=== PATIENT | male | born 1950 | race Caucasian/White ===

== ENCOUNTER 2017-10-12 16:52 | Inpatient (IN) | payer OTHER, BC ==
[~2017-10-12] VITALS: Ht 175.3 cm; Wt 107.5 kg
--- NOTE | ~2017-10-12 | EKG ---
[place] [address] [address] [facility] [place] [address] ELECTROCARDIOGRAM REPORT Name: DANIELLA AGUAYO Room #: 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 : 1950 Requested By: Toro Velasquez Order Number: [id number] MD: Ravinder Johnson Measurements Intervals [place] Rate: 90 P: 34 ND: 166 QRS: -61 QRSD: 92 T: 55 QT: 343 QTc: 420 Interpretive Statements Sinus rhythm Inferior infarct, age indeterminate No previous ECG available for comparison Electronically Signed On 10-12-2017 17:11:49 VENDING MACHINE MECHANIC by Ravinder Johnson [email or web address] <ELECTRONICALLY SIGNED> By: Ravinder Johnson MD, [facility] 10/12/17 1711 1652 1652 Ravinder Johnson MD, FACC /EPI
--- NOTE | ~2017-10-12 | D ---
[facility] [place] [address] DISCHARGE SUMMARY Name: DANIELLA AGUAYO Room #: 217-P [facility] IN M.R.#: [id number] Admission: 10/12/17 Attend Phys: Bob Lorenzo MD Discharge: 10/14/17 Date of : 50 Report #: [id number] THIS REPORT FOR: //name// CC: NOVA Lroenzo DATE OF SERVICE: 10/14/2017 HISTORY OF PRESENT ILLNESS: This is a 67-year-old male with a 48-hour history of substernal chest pain, which had occurred both with exercise and at rest. The patient felt it might be "indigestion" because on each occasion he described that belching would relieve the pain. The first event lasted 30 minutes and he considered going to the Emergency Room at that time, but after belching his pain totally resolved and so he remained at home. The patient did note that exercise precipitated his discomfort consistently, highly suggestive of myocardial ischemia. Electrocardiogram in the office revealed tiny Q-waves in the inferior leads and perhaps [address] segment elevation. The patient was seen urgently by Dr. Migel Mahoney, who referred him to the Emergency Room at [facility]. Evaluation there disclosed troponin 1.34, suggestive of acute myocardial injury, and he was hospitalized on the coronary care unit. HOSPITAL COURSE: Following admission, the patient was started on intravenous heparin and on the morning of 10/13/2017 he underwent cardiac catheterization by Dr. Migel Mahoney, which revealed high-grade stenoses in both the left anterior descending and the right coronary system as well as ostial lesions. Specifically, there was left main disease in the proximal segment. In the left anterior descending there was a severe discrete stenosis in the proximal segment estimated 80% and in the mid segment there was a 70% stenosis. At the diagonal there was a discrete 80% stenosis of the proximal segment. The obtuse marginal #1 showed mild disease, the obtuse marginal #2 small to moderate size caliber vessel with ostial stenosis of 70%. Right coronary artery was dominant with severe diffuse stenosis of 70-80% in the mid and distal segments. The right posterior descending artery was patent with no flow limiting lesions. Left ventriculogram showed ejection fraction estimated at 30-40% with wall motions present including hypokinesis of the inferior and distal anteroapical segments. Echocardiogram estimated ejection fraction 50% with no significant valvular abnormalities identified. Laboratory testing, methicillin-resistant Staphylococcus aureus negative, hs-CRP 8.49 (with an active respiratory infection). Lipid profile: Total cholesterol 165, triglycerides 270, LDL 66. Peak troponin 4.12. The patient did not have recurrent chest pain during hospitalization and he remained hemodynamically stable with excellent blood pressure control. He was [address] [address] DISCHARGE SUMMARY Name: DANIELLA AGUAYO Room #: 217-P [facility] IN M.R.#: [id number] Admission: 10/12/17 Attend Phys: Bob Lorenzo MD Discharge: 10/14/17 Date of : 50 Report #: [id number] started on beta christine by Dr. Mahoney, which he maintained through his hospitalization. In addition, his statin therapy was increased with utilization of atorvastatin 50 mg daily. On the day of transfer, the patient raised a question about receiving surgical bypass in another facility. The patient contacted Dr. Armando Bone at the [facility] and transfer was accomplished. In all ways the patient remained medically stable throughout this hospitalization. FINAL DIAGNOSES: 1. Non-ST elevation myocardial infarction. 2. Three-vessel coronary atherosclerosis, severe. 3. Ischemic cardiomyopathy, mild (ejection fraction 35-50%). 4. Acute viral bronchitis. 5. Type 2 diabetes mellitus, poorly controlled. DISCHARGE MEDICATIONS: Metformin ER 1000 mg b.i.d. a.c., aspirin 81 mg daily, metoprolol succinate 50 mg daily, atorvastatin 40 mg daily, pantoprazole 40 mg daily, guaifenesin 600 mg 2 tablets b.i.d., tamsulosin 0.4 mg at bedtime, lisinopril 20 mg daily, nitroglycerin 0.4 mg sublingually p.r.n. chest pain, and Humalog insulin low dose sliding scale. DISPOSITION: The patient is discharged from [facility] with readmission planned at the [facility] under the care of Dr. Nova Bone with plans for urgent coronary artery revascularization. PROCEDURE: Left heart catheterization with selective coronary angiography and left ventriculogram. COMPLICATIONS: None. DIRECTOR AND PROFESSOR: Migel Mahoney M.D. (Cardiology). <ELECTRONICALLY SIGNED> By: Bob Lorenzo MD 10/15/17 0823 1335 1515 Bob Lorenzo MD /nt
--- NOTE | ~2017-10-12 | 2DMMODE ---
[facility] [address] [place] [address] 2 D/M-MODE ECHOCARDIOGRAM Name: DANIELLA AGUAYO Room #: 217-P [facility] IN ..#: [id number] Admission: 10/12/17 Attend Phys: Bob Lorenzo MD Discharge: Date of : 50 Date of Service: 10/13/17 1619 Report #: [id number] THIS REPORT FOR: //name// APPROVED REPORT Study performed: 10/13/2017 15:05:55 EXAM: Comprehensive 2D, Doppler, and color-flow Echocardiogram Patient Location: Bedside Room #: [facility] Status: routine BSA: 2.23 HR: 80 bpm BP: 122/76 mmHg Rhythm: NSR Other Information Study Quality: Fair Technically limited study due to body habitus. Indications Pre-Op CABG Echo Enhancing Agent Agent(s) / Amount(s) Used: Optison 4 cc 2D Dimensions RVDd: 39.53 mm LVEF(%): 51.14 (>50%) IVSd: 11.28 (7-11mm) LVOT Diam: 22.63 (18-24mm) LVDd: 59.05 mm PWd: 10.90 (7-11mm) Ascending Ao: 41.16 (22-36mm) LVDs: 43.38 (25-40mm) Aortic Root: 39.23 mm Archer's LVEF: 51.14 % Volumes Left Atrial Volume (Systole) Single Plane 4CH: 46.77 mL Single Plane 2CH: 51.05 mL LA ESV Index: 24.00 mL/m2 Aortic Valve AoV Peak Camilo.: 1.48 m/s AO Peak Gr.: 8.77 mmHg LVOT Max P.95 mmHg LVOT Max V: 0.99 m/s MARIA D Vmax: 2.[address] [facility] [place] [address] 2 D/M-MODE ECHOCARDIOGRAM Name: DEDEDANIELLA Samson Room #: 217-P [facility] IN M.R.#: [id number] Admission: 10/12/17 Attend Phys: Bob Lorenzo MD Discharge: Date of : 50 Date of Service: 10/13/17 1619 Report #: [id number] Mitral Valve E/A Ratio: 0.9 MV Decel. Time: 215.26 ms MV E Max Camilo.: 0.76 m/s MV A Camilo.: 0.87 m/s MV PHT: 62.43 ms IVRT: 87.66 ms Pulmonary Valve PV Peak Camilo.: 1.54 m/s PV Peak Gr.: 9.47 mmHg Tricuspid Valve TR Peak Camilo.: 2.71 m/s TR Peak Gr.: 29.29 mmHg Left Ventricle Left ventricle is at the upper limits of normal. Regional wall motion abnormalities cannot be excluded. There is normal left ventricular wall thickness. Left ventricular systolic function is low normal. LVEF is 50%. Mild diastolic dysfunction is present (impaired relaxation pattern). Right Ventricle The right ventricle is normal size. The right ventricular systolic function is normal. Atria The left atrium size is normal. The right atrium size is normal. Aortic Valve The aortic valve is normal in structure. No aortic regurgitation is present. There is no aortic valvular stenosis. Mitral Valve The mitral valve is normal in structure. Mild mitral regurgitation. No evidence of mitral valve stenosis. Tricuspid Valve The tricuspid valve is normal in structure. Trace tricuspid regurgitation. Estimated PAP is 29mmHg plus the right atrial pressure. Pulmonic Valve Pulmonic valve is not well visualized. [facility] [address] [place] [address] 2 D/M-MODE ECHOCARDIOGRAM Name: DANIELLA AGUAYO Room #: 217-P [facility] IN ..#: [id number] Admission: 10/12/17 Attend Phys: Bob Lorenzo MD Discharge: Date of : 50 Date of Service: 10/13/17 1619 Report #: [id number] Great Vessels Aortic root is mildly dilated at 3.9cm. The ascending aorta is mildly dilated 4.1cm. The inferior vena cava is not well visualized. Pericardium There is no pericardial effusion. <Conclusion> Technically difficult study Left ventricular systolic function is low normal. LVEF is 50%. Mild diastolic dysfunction The aortic valve is normal in structure. No aortic regurgitation or stenosis The mitral valve is normal in structure. Mild mitral regurgitation. The ascending aorta is mildly dilated 4.1cm. There is no pericardial effusion. <ELECTRONICALLY SIGNED> By: Ravinder Johnson MD, [facility] 10/13/17 1619 1619 1619 Ravinder Johnson MD, FAC /INF
--- NOTE | ~2017-10-12 | CATHLAB ---
[facility] [address] [place] [address] INVASIVE PROCEDURE REPORT Name: DANIELLA AGUAYO Room #: 217-P [facility] IN M.R.#: [id number] Admission: 10/12/17 Attend Phys: Bob Lorenzo MD Discharge: Date of : 50 Date of Service: 10/13/17 1242 Report #: [id number] THIS REPORT FOR: //name// APPROVED REPORT Patient Details Patient Status: In-Patient Room #: The patient is a 67 year-old male Event Personnel Migel Mahoney Webmethods Consultant, Aidee Jacobs, Gaudencio Victoria Penny, Wes RN Procedures Performed Art Access - R femoral artery* [id number] Initial Mod Sed Same Phys/QHP Gr5y [id number] Left Heart Cath w/or w/o Coronaries [id number] [facility] Hemostasis with Manual pressure Indication Non-STEMI , Dyspnea, Chest pain Risk Factors Hypercholesterolemia, Hypertension, Diabetes Procedure Narrative The patient was brought urgently to the Cardiac Catheterization Laboratory and was prepped and draped in a sterile manner. The Right Groin^ was infiltrated with 1% Lidocaine subcutaneous anesthesia. A PINNACLE 4FR Sheath #[id number] sheath was inserted into the RFA^. Coronary angiography was performed using coronary diagnostic catheters. The right coronary system was accessed and visualized with a JR 4 catheter. The left coronary system was accessed and visualized with a JL 4 catheter. The left ventricle was accessed and visualized with a Pigtail catheter. Left ventricular/Aortic Valve gradient assessed via catheter pullback. Left ventriculogram was performed in MORRIS projection. The patient tolerated the procedure well and there were no complications associated with the procedure. There was no hematoma. Intraoperative Conscious Sedation Sedation start time: 11:37 Case end Time: 11:58 Fentanyl 25.0 mcg Versed 1.5 mg Fluoro Time: 2.57 minutes [facility] [place] [address] INVASIVE PROCEDURE REPORT Name: DEDEDANIELLA Room #: 217-P [facility] IN M.R.#: [id number] Admission: 10/12/17 Attend Phys: Bob Lorenzo MD Discharge: Date of : 50 Date of Service: 10/13/17 1242 Report #: [id number] Dose: DAP 12400.00 cGycm2 756 mGy Contrast Type and Amount: Omnipaque 105 ml Coronary Angiography The patient's coronary anatomy is right dominant. Diagnostic Cath Left Main Mild disease in the proximal segment. LAD There is a severe discrete stenosis in the proximal segment, 80%. There is a severe discrete stenosis in the mid segment, 70%. Diagonal 1 There is a severe discrete stenosis in the proximal segment, 80%. OM1 Mild disease in the proximal segment. OM2 Small to moderate size caliber vessel with a severe ostial stenosis, 70%. Right Coronary Dominant vessel with severe diffuse stenosis of 70-80% in the mid and distal segments of the RCA. R PDA Patent vessel, with no flow-limiting lesions. RPLV Moderate size caliber vessel, supplies several branches as it travels down the inferolateral wall to the apex. No flow-limiting lesions. Left Ventriculography The left ventricle is mildly dilated in size with decreased contractility. The left ventricular ejection fraction is estimated to be 35-40%. Left ventricular wall motion abnormalities are present. There is hypokinesis of the inferior and distal anteroapical segment. Hemodynamics The aortic pressure is 111/64 mmHg with a mean of 86 mmHg. The left ventricular pressure is 120/-1 mmHg with a mean of mmHg. The left ventricular end diastolic pressure is 8 mmHg. Conclusion 1. Severe multivessel disease. 2. At least moderate ischemic cardiomyopathy. 3. Recommend CV consultation for CABG. 4. Aggressive risk factor management. <ELECTRONICALLY SIGNED> By: Migel Mahoney MD 10/13/17 1242 1242 1242 Migel Mahoney MD /INF
--- NOTE | ~2017-10-12 | H ---
[facility] [place] [address] HISTORY AND PHYSICAL Name: DANIELLA AGUAYO Room #: 217-P [facility] IN M.R.#: [id number] Admission: 10/12/17 Attend Phys: Bob Lorenzo MD Discharge: Date of : 50 Report #: [id number] THIS REPORT FOR: //name// CC: Bob Lorenzo DATE OF SERVICE: 10/12/2017 This is a 67-year-old with known coronary artery disease, who was seen in the office prior to hospitalization and referred to Dr. Migel Mahoney. CHIEF COMPLAINT: Chest pains. HISTORY OF PRESENT ILLNESS: This patient has known asymptomatic coronary artery disease by coronary calcium scanning. On 10/10, the patient began to have recurring bouts of epigastric and substernal chest pain. The first event lasted at least 30 minutes and he considered going to the Emergency Room at that time, but he belched a couple of times and felt that his pain totally resolved. Since that time, the patient has had pains at rest, but also had pain with attempted exercise. The patient states he is usually able to exercise to a level of 1000 calories, but in the past 48 hours, could only accomplish about 200 calories of exercise, at which time his pain would recur. Electrocardiogram revealed very small Q-waves in inferior leads. The patient was seen by Dr. Migel Mahoney, who felt this represented myocardial ischemia and he referred him to the Emergency Room, where he was found to have an elevated troponin, consistent with a non-ST elevation SC. The patient was hospitalized and started on heparin infusion with plan to undergo cardiac catheterization on 10/13/2017. PAST MEDICAL HISTORY: The patient has type 2 diabetes mellitus with neuropathy and he has known coronary artery disease. He has been hypertensive, obese. He has known left carotid atherosclerosis, obstructive sleep apnea, long-standing gastroesophageal reflux disease with documented peptic ulcers and Haile esophagus. He also has a duodenal diverticulum with a history of recurrent duodenal diverticulitis. Known hyperuricemia, elevated ferritin, hypogonadism, diverticulosis, lactose intolerance. ALLERGIES: None known (INTOLERANT OF PRAVASTATIN). 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 IMMUNIZATIONS: Tdap 01/2009, pneumococcal vaccine 05/2014. 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 Nonsmoker, [id number] alcohol consumption with dietary [address] [address] HISTORY AND PHYSICAL Name: DANIELLA AGUAYO Room #: 217-P [facility] IN M.R.#: [id number] Admission: 10/12/17 Attend Phys: Bob Lorenzo MD Discharge: Date of : 50 Report #: [id number] indiscretion, does regularly exercise. He is , has children. PAST SURGICAL HISTORY: In 1991 left elbow open reduction internal fixation, 2012 laparoscopic cholecystectomy, in 2016 bilateral lens replacements. REVIEW OF SYSTEMS: GASTROINTESTINAL: The patient is convinced that on each occasion that he has had chest pain that belching has resolved his symptomatology. PHYSICAL EXAMINATION: GENERAL: This is an obese male who appears in no distress. He is coughing due to a lower respiratory infection. ENT: Tympanic membranes are clear. Posterior oropharynx shows only mild injection with no lateral bands or exudates. LUNGS: Clear. Cough is noted. CHEST: Nontender to palpation. CARDIOVASCULAR: S1, S2 are normal. No murmurs are noted. Peripheral pulses are intact. ABDOMEN: Obese, soft and nontender with scars related to previous laparoscopic cholecystectomy. LIVER: Nonpalpable. IMPRESSION: 1. Non-ST elevated myocardial infarction. 2. Coronary atherosclerosis, multivessel. 3. Type 2 diabetes mellitus in the obese, complicated by peripheral neuropathy. 4. Benign essential hypertension, controlled. 5. Chronic gastroesophageal reflux with Haile esophagus. 6. Obstructive sleep apnea. 7. Obesity. 8. Left carotid atherosclerosis. PLAN: The patient is n.p.o., but we will administer cough medication and guaifenesin because of his lower respiratory infection. The patient has been seen by Dr. Mahoney and is scheduled this morning for cardiac catheterization. I have discussed with the patient the possibility that the culprit vessel could be stented or he may be the recommended coronary artery bypass grafting based on his previous evidence for multivessel disease. <ELECTRONICALLY SIGNED> By: Bob Lorenzo MD 10/14/17 0736 0540 0613 Bob Lorenzo MD /nt
[2017-10-12 16:52] VITALS: BP 129/81
[2017-10-12 17:15] LABS: ABSOLUTE NEUTROPHILS 5.2 thou/uL (1.4-8.2); BASOPHILS 1.1 % (0.0-2.0); EOSINOPHILS 3.6 % (0.0-3.0); HEMATOCRIT 43.1 % (42.0-52.0); LYMPHOCYTES 26.7 % (24.0-44.0); MCH 29.3 pg (26.0-34.0); MCHC 34.8 g/dL (28.0-37.0); MCV 84.2 fL (80.0-100.0); MONOCYTES 7.1 % (1.0-8.0); PLATELET COUNT 217 thou/uL (150-400); POLYS 61.5 % (36.0-66.0); RBC 5.12 mil/uL (4.50-6.00); RDW 13.3 % (10.5-14.5); WBC 8.5 thou/uL (4.0-11.0)
[2017-10-12 17:23] LABS: CALCIUM 9.6 mg/dL (8.5-10.1); CREATININE 0.9 mg/dL (0.7-1.3); POTASSIUM 4.1 mmol/L (3.5-5.1)
[2017-10-12 17:31] LABS: ALBUMIN 3.7 g/dL (3.4-5.0); DIRECT BILIRUBIN 0.1 mg/dL (<0.1-0.3); TOTAL BILIRUBIN 0.4 mg/dL (<0.1-1.0); TOTAL PROTEIN 7.4 g/dL (6.4-8.2)
[2017-10-12 17:35] LABS: TROPONIN-I 1.34 ng/mL (<0.06)
[2017-10-12 18:05] LABS: APTT 26.1 Seconds (24.5-32.8); PROTIME 9.6 Seconds (9.3-11.4)
[2017-10-12] MEDS ORDERED: ASPIR 8181 MG PO (18:20)
[2017-10-12] MEDS ORDERED: FISH OIL 1,001000 M2 PO (18:21)
[2017-10-12] MEDS ORDERED: NEPHROCAPS SOFT1 CAP PO (18:21)
[2017-10-12] MEDS ORDERED: VITAMIN B COMP1 EACH PO (18:21)
[2017-10-12] MEDS ORDERED: KETOCONAZOLE 2200 MG PO (18:22)
[2017-10-12] MEDS ORDERED: PRINIVIL20 MG PO (18:22)
[2017-10-12] MEDS ORDERED: MAG-G27 MG PO (18:23)
[2017-10-12] MEDS ORDERED: METFORMIN HCL500 MG PO (18:23)
[2017-10-12] MEDS ORDERED: MULTIPLE VITAM1 EAC2 PO (18:24)
[2017-10-12] MEDS ORDERED: OMEPRAZOLE20 MG PO (18:24)
[2017-10-12] MEDS ORDERED: CRESTOR10 MG PO (18:24)
[2017-10-12] MEDS ORDERED: VITAMIN D-32000 UNIT PO (18:25)
[2017-10-12] MEDS ORDERED: FLOMAX0.4 MG PO (18:25)
[2017-10-12 21:11] VITALS: BP 127/77
[2017-10-12 21:34] VITALS: BP 113/71
[2017-10-12 22:02] VITALS: BP 130/84
[2017-10-13 05:26] LABS: CHOLESTEROL 165 mg/dL (<200); HDL CHOLESTEROL 45 mg/dL (>40); LDL CHOLESTEROL 66 mg/dL (<100); SERUM ASSESSMENT Clear; TC:HDL 3.7 Ratio (Not establshd); TRIGLYCERIDE 270 mg/dL (<150); VLDL 54 mg/dL (<40)
[2017-10-13 05:45] VITALS: BP 128/72
[2017-10-13 07:40] VITALS: BP 122/82
[2017-10-13 12:35] VITALS: BP 122/76
[2017-10-13 16:40] VITALS: BP 121/69
[2017-10-13 20:36] VITALS: BP 113/69
[2017-10-13 23:30] VITALS: BP 124/79
[2017-10-14 04:11] VITALS: BP 110/63
[2017-10-14 04:49] LABS: HEMATOCRIT 40.4 % (42.0-52.0); HEMOGLOBIN 13.7 gm/dL (14.0-18.0); MCH 29.1 pg (26.0-34.0); MCHC 33.9 g/dL (28.0-37.0); MCV 85.8 fL (80.0-100.0); RBC 4.71 mil/uL (4.50-6.00); RDW 13.2 % (10.5-14.5); WBC 7.3 thou/uL (4.0-11.0)
[2017-10-14 05:04] LABS: CALCIUM 8.8 mg/dL (8.5-10.1); CREATININE 0.9 mg/dL (0.7-1.3); POTASSIUM 3.9 mmol/L (3.5-5.1)
[2017-10-14 08:10] VITALS: BP 127/71
[2017-10-14 12:05] VITALS: BP 141/51
[2017-10-14 12:15] VITALS: BP 118/72
[2017-10-14] MEDS ORDERED: METOPROLOL SUCC50 MG PO (13:36)
[2017-10-14] MEDS ORDERED: NITROGLYCERIN0.4 MG SUBLING (13:36)
[2017-10-14] MEDS ORDERED: LIPITOR40 MG PO (13:36)
[2017-10-14] MEDS ORDERED: MUCINEX DM ER1 EAC1 PO (13:37)
[2017-10-14] MEDS ORDERED: PROTONIX IV40 MG IV PUSH (13:37)
[2017-10-14 13:54] VITALS: BP 118/72
[2017-10-15 02:06] LABS: GLYCOHEMOGLOBIN (HGB A1C) 8.1 % (4.8-5.6)
== END 2017-10-14 14:58 | disposition short-term general hospital (02) | DRG 282 ==
LOC: ER 16:52 → EROBS 17:55 → 2N 17:55
PROVIDERS: Emergency Medicine; Internal Medicine; Internal Medicine Cardiovascular Disease; Physician Assistant
PROC: 4A023N7 Measurement of Cardiac Sampling and Pressure, Left Heart, Percutaneous Approach (ICD-10-PCS; principal; 2017-10-13)
PROC: B2151ZZ Fluoroscopy of Left Heart using Low Osmolar Contrast (ICD-10-PCS; principal; 2017-10-13)
PROC: B2111ZZ Fluoroscopy of Multiple Coronary Arteries using Low Osmolar Contrast (ICD-10-PCS; principal; 2017-10-13)
DX: I21.4 Non-ST elevation (NSTEMI) myocardial infarction (principal); E11.65 Type 2 diabetes mellitus with hyperglycemia; I25.10 Atherosclerotic heart disease of native coronary artery without angina pectoris; I25.5 Ischemic cardiomyopathy; J20.8 Acute bronchitis due to other specified organisms; I10 Essential (primary) hypertension; I65.22 Occlusion and stenosis of left carotid artery; K22.70 Barrett's esophagus without dysplasia; E78.2 Mixed hyperlipidemia; E11.42 Type 2 diabetes mellitus with diabetic polyneuropathy; K21.9 Gastro-esophageal reflux disease without esophagitis; N40.0 Benign prostatic hyperplasia without lower urinary tract symptoms; E78.00 Pure hypercholesterolemia, unspecified; Z96.1 Presence of intraocular lens; G47.33 Obstructive sleep apnea (adult) (pediatric); E66.9 Obesity, unspecified; Z87.891 Personal history of nicotine dependence; Z68.35 Body mass index [BMI] 35.0-35.9, adult; Z87.11 Personal history of peptic ulcer disease; Z79.4 Long term (current) use of insulin; Z79.84 Long term (current) use of oral hypoglycemic drugs; Z98.42 Cataract extraction status, left eye; Z98.41 Cataract extraction status, right eye; Z90.49 Acquired absence of other specified parts of digestive tract; Z88.8 Allergy status to other drugs, medicaments and biological substances; Z82.49 Family history of ischemic heart disease and other diseases of the circulatory system
CPT/HCPCS: 10081